=== PATIENT | female | born 1965 | race Caucasian/White ===

== ENCOUNTER 2018-02-27 15:09 | Inpatient (IN) | payer OTHER ==
[~2018-02-27] VITALS: Ht 165.1 cm; Wt 86.2 kg
[~2018-02-27 15:09] MED LIST: Glucophage PO; HIBICLENS TP; HumaLOG 100 UNIT/1 ML (3ML) SUBCUTANEO; Lantus 1000 U/10 ML SUBCUTANEO; METFORMIN HCL500 MG; Protonix PO
[2018-03-01] MEDS ORDERED: LEVSIN/SL0.125 MG SL (08:47)
[2018-03-01] MEDS ORDERED: RANITIDINE HCL300 MG PO (08:48)
== END 2018-03-01 10:56 | disposition home or self-care (01) | DRG 813 ==
LOC: ER 15:09 → MEDJ 17:40
PROC: 30233R1 Transfusion of Nonautologous Platelets into Peripheral Vein, Percutaneous Approach (ICD-10-PCS; principal; 2018-02-27)
DX: D69.3 Immune thrombocytopenic purpura (principal); E11.9 Type 2 diabetes mellitus without complications; I10 Essential (primary) hypertension; D63.8 Anemia in other chronic diseases classified elsewhere

== ENCOUNTER 2018-03-11 15:27 | Inpatient (IN) | payer OTHER ==
[~2018-03-11 15:27] MED LIST changes: +LEVSIN/SL0.125 MG SL; +RANITIDINE HCL300 MG PO
== END 2018-03-16 10:21 | disposition home or self-care (01) | DRG 813 ==
LOC: SURH 15:27
PROC: 30233R1 Transfusion of Nonautologous Platelets into Peripheral Vein, Percutaneous Approach (ICD-10-PCS; principal; 2018-03-11)
PROC: 6A551Z2 Pheresis of Platelets, Multiple (ICD-10-PCS; 2018-03-11)
PROC: 8E0ZXY6 Isolation (ICD-10-PCS; 2018-03-11)
DX: D69.3 Immune thrombocytopenic purpura (principal); I10 Essential (primary) hypertension; E11.9 Type 2 diabetes mellitus without complications; D63.8 Anemia in other chronic diseases classified elsewhere

== ENCOUNTER 2018-06-23 12:29 | Inpatient (IN) | payer OTHER ==
[~2018-06-23] VITALS: Ht 165.1 cm; Wt 86.2 kg
[2018-06-25] MEDS ORDERED: OSEL75CA PO (09:45)
== END 2018-06-25 10:05 | disposition home or self-care (01) | DRG 813 ==
LOC: ER 12:29 → SEC-K 06-24 18:02
PROC: 30233R1 Transfusion of Nonautologous Platelets into Peripheral Vein, Percutaneous Approach (ICD-10-PCS; principal; 2018-06-24)
DX: D69.3 Immune thrombocytopenic purpura (principal); J09.X2 Influenza due to identified novel influenza A virus with other respiratory manifestations

== ENCOUNTER 2018-12-29 13:46 | Emergency (ER) | payer OTHER ==
[~2018-12-29] VITALS: Ht 165.1 cm; Wt 88.5 kg
[~2018-12-29 13:46] MED LIST changes: +OSEL75CA PO
[2018-12-29] MEDS ORDERED: VITAMIN B 12 SL (13:59)
[2018-12-29] MEDS ORDERED: NPLATE250 MCG SQ (14:00)
== END 2018-12-29 18:18 | disposition home or self-care (01) ==
LOC: ER 13:46
DX: J06.9 Acute upper respiratory infection, unspecified (principal); R05 Cough

== ENCOUNTER 2021-07-10 09:59 | Outpatient (CLI) | payer OTHER ==
[~2021-07-10 09:59] MED LIST changes: +NPLATE250 MCG SQ; +VITAMIN B 12 SL
== END 2021-07-10 10:00 | disposition home or self-care (01) ==
LOC: LAB 09:59
PROVIDERS: ATTEND Obstetrics & Gynecology
DX: Z20.818 Contact with and (suspected) exposure to other bacterial communicable diseases (principal); Z20.828 Contact with and (suspected) exposure to other viral communicable diseases

== ENCOUNTER 2022-06-17 15:10 | Inpatient (IN) | payer OTHER ==
[~2022-06-17] VITALS: Ht 165.1 cm; Wt 88.5 kg
[2022-06-18] MEDS ORDERED: VITAMIN B-12500 MC3 SL (08:05)
== END 2022-06-21 21:14 | disposition home or self-care (01) | DRG 813 ==
LOC: MEDJ 15:10
PROVIDERS: ADMIT Internal Medicine Hematology & Oncology; ATTEND Internal Medicine Hematology & Oncology
PROC: 30233R1 Transfusion of Nonautologous Platelets into Peripheral Vein, Percutaneous Approach (ICD-10-PCS; principal; 2022-06-18)
DX: D69.3 Immune thrombocytopenic purpura (principal); D69.8 Other specified hemorrhagic conditions

== ENCOUNTER 2022-07-26 12:25 | Inpatient (IN) | payer OTHER ==
[~2022-07-26] VITALS: Ht 165.1 cm; Wt 86.2 kg
[~2022-07-26 12:25] MED LIST changes: +VITAMIN B-12500 MC3 SL
[2022-07-29] MEDS ORDERED: POM (MEDICAMENTO EN PO (18:20)
== END 2022-07-29 18:59 | disposition home or self-care (01) | DRG 813 ==
LOC: MEDI 12:25
PROVIDERS: ADMIT Internal Medicine Hematology & Oncology; ATTEND Internal Medicine Hematology & Oncology
PROC: 30233N1 Transfusion of Nonautologous Red Blood Cells into Peripheral Vein, Percutaneous Approach (ICD-10-PCS; principal; 2022-07-26)
DX: D69.3 Immune thrombocytopenic purpura (principal); M31.8 Other specified necrotizing vasculopathies; I10 Essential (primary) hypertension; E11.9 Type 2 diabetes mellitus without complications

== ENCOUNTER 2022-08-02 10:07 | Emergency (ER) | payer OTHER ==
[~2022-08-02] VITALS: Ht 165.1 cm; Wt 86.2 kg
[~2022-08-02 10:07] MED LIST changes: +POM (MEDICAMENTO EN PO
[2022-08-02] MEDS ORDERED: FAMOTIDINE20 MG PO (10:19)
== END 2022-08-02 15:13 | disposition home or self-care (01) ==
LOC: ER 10:07
DX: K29.00 Acute gastritis without bleeding (principal); Z88.6 Allergy status to analgesic agent

== ENCOUNTER 2024-07-23 10:56 | Outpatient (CLI) | payer OTHER ==
[~2024-07-23 10:56] MED LIST changes: +FAMOTIDINE20 MG PO
[2024-07-23 12:23] LABS: MYCOPLASMA PNEUMONIAE IGM REACTIVE (NO REACTIVE)
== END 2024-07-23 10:57 | disposition home or self-care (01) ==
LOC: LAB 10:56
PROVIDERS: ATTEND Internal Medicine Hematology & Oncology
DX: U07.1 COVID-19 (principal); Z20.828 Contact with and (suspected) exposure to other viral communicable diseases; Z87.09 Personal history of other diseases of the respiratory system; J20.0 Acute bronchitis due to Mycoplasma pneumoniae; J11.1 Influenza due to unidentified influenza virus with other respiratory manifestations

== ENCOUNTER 2024-08-13 10:35 | Inpatient (IN) | payer OTHER ==
[~2024-08-13] VITALS: Ht 165.1 cm; Wt 88.5 kg
[2024-08-13] MEDS ORDERED: NPLATE125 MCG SQ (11:24)
[2024-08-13] MEDS ORDERED: 0.9 % SODIUM CHLORIDE 1,000 ML IV SCH ×2 (11:45→17:15)
[2024-08-13 12:58] LABS: ALBUMIN 3.4 gm/dL (3.4-5.0); BILIRUBIN TOTAL 0.74 mg/dL (0.3-1.2); CALCIUM 8.9 mg/dL (8.5-10.1); CREATININE SERUM 0.85 mg/dL (0.55-1.02); GFR 69.18; GLOBULINA 4.2 G/DL (2.4-3.5); POTASSIUM 4.25 mEq/L (3.5-5.1); TOTAL PROTEIN 7.6 gm/dL (6.4-8.2)
[2024-08-13 14:02] LABS: URINE APPEARANCE Clear; URINE BILIRRUBIN Negative (NEGATIVE); URINE BLOOD Trace; URINE COLOR Yellow; URINE GLUCOSE Negative (NEGATIVE); URINE KETONE Negative (NEGATIVE); URINE LEUKOCYTE Negative; URINE NITRATE Negative; URINE PROTEIN Negative (NEGATIVE); URINE UROBILINOGEN 0.2 E.U./dl
[2024-08-13 14:06] LABS: URINE BACTERIA 12.2 uL (0.0-1933); URINE RBC 8.8 uL (0.0-20.8)
[2024-08-13 14:09] LABS: URINE EPITHELIAL CELLS 0.6 uL (0.0-38.8); URINE WBC 0.7 uL (0.0-23.2)
[2024-08-13 14:10] LABS: HEMOGLOBIN 13.1 g/dL (12.0-15.00); MEAN CELL VOLUME 89.1 fL (80.00-100.00); MEAN CORPUSCULAR HEMOGLOBIN 29.2 pg (27.00-32.0); MEAN CORPUSCULAR HGB CONC 32.8 g/dl (32.0-36.0); RED CELL DISTRIBUTION WIDTH 13.9 % (11.5-14.5)
[2024-08-13 14:51] LABS: PLATELET COUNT 2 K/uL (150-450)
[2024-08-13 16:59] VITALS: BP 127/71; O2SAT 97
[2024-08-13] MEDS ORDERED: METHYLPREDNISOLONE SOD SUCC 40 MG VIAL IV SCH (17:06)
[2024-08-13] MEDS ORDERED: PANTOPRAZOLE SODIUM 40 MG TABLET.DR PO SCH (17:07)
[2024-08-13] MEDS ORDERED: INSULIN LISPRO 1,000 UNIT/10 ML UNITS SUBCUTANEO PRN (17:15)
[2024-08-13] MEDS ORDERED: ENALAPRILAT DIHYDRATE 1.25 MG/ML VIAL IV PRN (17:15)
[2024-08-13] MEDS ORDERED: DEXTROSE 50 % IN WATER 0.5 G/ML DISP.SYRIN IV PRN (17:15)
[2024-08-13] MEDS ORDERED: ACETAMINOPHEN 325 MG TABLET PO PRN (17:15)
[2024-08-13] MEDS ORDERED: SIMETH PO SCH (17:20)
[2024-08-13] MEDS ORDERED: ALUMINUM HYD PO SCH (17:20)
[2024-08-13] MEDS ORDERED: DEXAMETHASONE 3 MG PO SCH (17:20)
[2024-08-13] MEDS ORDERED: LIDOCAINE HCL MAG HYDROX PO SCH (17:20)
[2024-08-13] MEDS ORDERED: METHYLPREDNISOLONE SOD SUCC 40 MG VIAL ONE (17:22)
[2024-08-13] MEDS ORDERED: TEMAZEPAM 15 MG CAPSULE PO SCH (21:00)
[2024-08-13 22:59] VITALS: BP 110/75; O2SAT 94
[2024-08-14 02:12] VITALS: BP 144/81; O2SAT 97
[2024-08-14] MEDS ORDERED: MAG HYDROX/ALUMINUM HYD/SIMETH 30 ML BLIST.PACK PO ONE (08:34)
[2024-08-14 10:38] VITALS: BP 140/92; O2SAT 97
[2024-08-14 17:21] VITALS: BP 102/70; O2SAT 97
[2024-08-14 18:39] LABS: HEMOGLOBIN 12.8 g/dL (12.0-15.00); MEAN CELL VOLUME 88.5 fL (80.00-100.00); MEAN CORPUSCULAR HEMOGLOBIN 29.1 pg (27.00-32.0); MEAN CORPUSCULAR HGB CONC 32.9 g/dl (32.0-36.0); RED BLOOD COUNT 4.41 M/uL (4.00-6.00); RED CELL DISTRIBUTION WIDTH 13.9 % (11.5-14.5)
[2024-08-14 19:35] LABS: PLATELET COUNT 3 K/uL (150-450)
[2024-08-15 01:13] VITALS: BP 150/81; O2SAT 96
[2024-08-15] MEDS ORDERED: MAG HYDROX/ALUMINUM HYD/SIMETH 30 ML BLIST.PACK PO ONE ×2 (07:31→12:19)
[2024-08-15 08:00] VITALS: BP 122/75; O2SAT 99
[2024-08-15 17:34] VITALS: BP 128/81; O2SAT 98
[2024-08-16 03:00] VITALS: BP 126/75; O2SAT 97
[2024-08-16 07:14] LABS: HEMATOCRIT 36.7 % (36.0-45.00); HEMOGLOBIN 12.4 g/dL (12.0-15.00); MEAN CELL VOLUME 88.4 fL (80.00-100.00); MEAN CORPUSCULAR HEMOGLOBIN 29.8 pg (27.00-32.0); MEAN CORPUSCULAR HGB CONC 33.8 g/dl (32.0-36.0); RED BLOOD COUNT 4.16 M/uL (4.00-6.00); RED CELL DISTRIBUTION WIDTH 14.4 % (11.5-14.5)
[2024-08-16] MEDS ORDERED: MAG HYDROX/ALUMINUM HYD/SIMETH 30 ML BLIST.PACK PO ONE ×3 (07:57→16:19)
[2024-08-16 09:03] VITALS: BP 134/86; O2SAT 98
[2024-08-16 09:18] LABS: PLATELET COUNT 14 K/uL (150-450)
[2024-08-16 16:30] VITALS: BP 120/78; O2SAT 95
[2024-08-17 03:01] VITALS: BP 140/100; O2SAT 96
[2024-08-17] MEDS ORDERED: MAG HYDROX/ALUMINUM HYD/SIMETH 30 ML BLIST.PACK PO ONE (08:12)
[2024-08-17 11:15] VITALS: BP 136/78
[2024-08-17 18:42] VITALS: BP 136/80
[2024-08-18 02:44] VITALS: BP 126/62; O2SAT 97
[2024-08-18] MEDS ORDERED: MAG HYDROX/ALUMINUM HYD/SIMETH 30 ML BLIST.PACK PO ONE ×3 (08:15→15:41)
[2024-08-18 08:57] LABS: HEMATOCRIT 39.5 % (36.0-45.00); HEMOGLOBIN 13.3 g/dL (12.0-15.00); MEAN CELL VOLUME 87.9 fL (80.00-100.00); MEAN CORPUSCULAR HEMOGLOBIN 29.6 pg (27.00-32.0); MEAN CORPUSCULAR HGB CONC 33.7 g/dl (32.0-36.0); RED BLOOD COUNT 4.49 M/uL (4.00-6.00); RED CELL DISTRIBUTION WIDTH 13.9 % (11.5-14.5)
[2024-08-18 09:38] VITALS: BP 147/83; O2SAT 99
[2024-08-18 09:45] LABS: PLATELET COUNT 14 K/uL (150-450)
[2024-08-18 19:08] VITALS: BP 137/90
[2024-08-19 02:13] VITALS: BP 148/84
[2024-08-19] MEDS ORDERED: MAG HYDROX/ALUMINUM HYD/SIMETH 30 ML BLIST.PACK PO ONE (07:54)
[2024-08-19 08:46] VITALS: BP 137/68
[2024-08-19] MEDS ORDERED: VinCRIStine SULFATE 2 MG/2 ML VIAL IV SCH (17:00)
[2024-08-19 19:38] VITALS: BP 125/83; O2SAT 97
[2024-08-19] MEDS ORDERED: CLONAZEPAM 0.5 MG TABLET PO STA (21:17)
[2024-08-20 00:53] VITALS: BP 114/76; O2SAT 98
[2024-08-20 06:34] LABS: HEMATOCRIT 41.1 % (36.0-45.00); HEMOGLOBIN 13.6 g/dL (12.0-15.00); MEAN CELL VOLUME 89.5 fL (80.00-100.00); MEAN CORPUSCULAR HEMOGLOBIN 29.6 pg (27.00-32.0); RED BLOOD COUNT 4.59 M/uL (4.00-6.00); RED CELL DISTRIBUTION WIDTH 13.7 % (11.5-14.5)
[2024-08-20 07:41] LABS: PLATELET COUNT 5 K/uL (150-450)
[2024-08-20 08:41] VITALS: BP 119/70
[2024-08-20] MEDS ORDERED: MAG HYDROX/ALUMINUM HYD/SIMETH 30 ML BLIST.PACK PO ONE (16:06)
[2024-08-20 19:11] VITALS: BP 112/72
[2024-08-21 02:26] VITALS: BP 118/72; O2SAT 98
[2024-08-21] MEDS ORDERED: MAG HYDROX/ALUMINUM HYD/SIMETH 30 ML BLIST.PACK PO ONE ×2 (07:45→12:27)
[2024-08-21 10:09] VITALS: BP 113/80; O2SAT 98
[2024-08-21 18:03] VITALS: BP 114/76; O2SAT 100
[2024-08-21] MEDS ORDERED: TEMAZEPAM 15 MG CAPSULE PO SCH (23:00)
[2024-08-21 23:25] LABS: HEMATOCRIT 41.5 % (36.0-45.00); HEMOGLOBIN 13.5 g/dL (12.0-15.00); MEAN CELL VOLUME 88.7 fL (80.00-100.00); MEAN CORPUSCULAR HGB CONC 32.7 g/dl (32.0-36.0); PLATELET COUNT 41 K/uL (150-450); RED BLOOD COUNT 4.67 M/uL (4.00-6.00); RED CELL DISTRIBUTION WIDTH 14.2 % (11.5-14.5)
[2024-08-22 01:38] VITALS: BP 104/63; O2SAT 94
[2024-08-22] MEDS ORDERED: MAG HYDROX/ALUMINUM HYD/SIMETH 30 ML BLIST.PACK PO ONE (07:47)
[2024-08-22 10:15] VITALS: BP 103/65; O2SAT 98
[2024-08-22] MEDS ORDERED: ALUMINUM HYD PO SCH (10:19)
[2024-08-22] MEDS ORDERED: LIDOCAINE HCL MAG HYDROX PO SCH (10:19)
[2024-08-22] MEDS ORDERED: DEXAMETHASONE 6 MG PO SCH (10:19)
[2024-08-22] MEDS ORDERED: SIMETH PO SCH (10:19)
[2024-08-22 18:24] VITALS: BP 114/73; O2SAT 98
[2024-08-23 01:31] VITALS: BP 99/62; O2SAT 96
[2024-08-23] MEDS ORDERED: MAG HYDROX/ALUMINUM HYD/SIMETH 30 ML BLIST.PACK PO ONE (08:06)
[2024-08-23 08:38] VITALS: BP 110/73
[2024-08-23 16:02] LABS: HEMATOCRIT 44.9 % (36.0-45.00); HEMOGLOBIN 14.3 g/dL (12.0-15.00); MEAN CELL VOLUME 89.8 fL (80.00-100.00); MEAN CORPUSCULAR HEMOGLOBIN 28.7 pg (27.00-32.0); RED BLOOD COUNT 4.99 M/uL (4.00-6.00)
[2024-08-23 16:28] LABS: PLATELET COUNT 10 K/uL (150-450)
[2024-08-23 18:01] LABS: HEMATOCRIT 41.9 % (36.0-45.00); HEMOGLOBIN 13.8 g/dL (12.0-15.00); MEAN CELL VOLUME 88.7 fL (80.00-100.00); MEAN CORPUSCULAR HEMOGLOBIN 29.2 pg (27.00-32.0); MEAN CORPUSCULAR HGB CONC 32.9 g/dl (32.0-36.0); RED BLOOD COUNT 4.72 M/uL (4.00-6.00); RED CELL DISTRIBUTION WIDTH 14.4 % (11.5-14.5)
[2024-08-23 18:12] VITALS: BP 123/75
[2024-08-23 18:20] LABS: PLATELET COUNT 12 K/uL (150-450)
[2024-08-24 01:42] VITALS: BP 104/64; O2SAT 97
[2024-08-24 08:58] VITALS: BP 93/71
[2024-08-24 16:44] VITALS: BP 139/74
[2024-08-24] MEDS ORDERED: MAG HYDROX/ALUMINUM HYD/SIMETH 30 ML BLIST.PACK PO ONE (16:48)
[2024-08-25 01:49] VITALS: BP 114/64; O2SAT 98
[2024-08-25] MEDS ORDERED: MAG HYDROX/ALUMINUM HYD/SIMETH 30 ML BLIST.PACK PO ONE (08:12)
[2024-08-25 09:31] LABS: HEMATOCRIT 39.7 % (36.0-45.00); HEMOGLOBIN 12.8 g/dL (12.0-15.00); MEAN CELL VOLUME 89.7 fL (80.00-100.00); MEAN CORPUSCULAR HEMOGLOBIN 28.8 pg (27.00-32.0); MEAN CORPUSCULAR HGB CONC 32.2 g/dl (32.0-36.0); RED BLOOD COUNT 4.42 M/uL (4.00-6.00); RED CELL DISTRIBUTION WIDTH 13.9 % (11.5-14.5)
[2024-08-25 09:37] LABS: PLATELET COUNT 47 K/uL (150-450)
[2024-08-25 09:49] VITALS: BP 146/77; O2SAT 98
== END 2024-08-25 12:56 | disposition home or self-care (01) | DRG 813 ==
LOC: ER 10:37 → MEDJ 19:01
PROVIDERS: Emergency Medicine; ADMIT Internal Medicine Hematology & Oncology; ATTEND Internal Medicine Hematology & Oncology
PROC: 30233R1 Transfusion of Nonautologous Platelets into Peripheral Vein, Percutaneous Approach (ICD-10-PCS; principal; 2024-08-13)
DX: D69.3 Immune thrombocytopenic purpura (principal); E11.9 Type 2 diabetes mellitus without complications; I10 Essential (primary) hypertension; K29.00 Acute gastritis without bleeding; Z79.4 Long term (current) use of insulin